=== PATIENT | male | born 1995 | race Caucasian/White ===

== ENCOUNTER 2018-07-09 08:00 | Emergency (ER) | payer SELFPAY ==
[~2018-07-09] VITALS: Ht 167.6 cm; Wt 109.1 kg
[2018-07-09] MEDS ORDERED: SODIUM CHLORIDE 0.9% 1,000 ML IV ONE (08:30)
[2018-07-09] MEDS ORDERED: LORazepam 2 MG/ML VIAL IVP ONE (08:30)
[2018-07-09 08:38] LABS: BASOPHILS % (AUTO) 0.3 % (0.0-2.0); EOSINOPHILS % (AUTO) 0.4 % (1.0-6.0); HEMATOCRIT 49.8 % (41-53); HEMOGLOBIN 17.4 g/dL (13.5-17.5); LYMPHOCYTES # (AUTO) 1.3 K/uL (1.0-4.8); LYMPHOCYTES % (AUTO) 11.2 % (22.0-44.0); MEAN CORPUSCULAR HEMOGLOBIN 31.7 pg (26.0-34.0); MEAN CORPUSCULAR VOLUME 91 fL (80-100); MONOCYTES # (AUTO) 0.6 K/uL (0.1-1.0); MONOCYTES % (AUTO) 4.9 % (2.0-9.0); NEUTROPHILS # (AUTO) 9.5 K/uL (1.8-7.7); NEUTROPHILS % (AUTO) 83.2 % (40.0-70.0); PLATELET COUNT (AUTO) 272 K/uL (150-450); RED CELL DISTRIBUTION WIDTH 13.3 % (11.5-14.5)
[2018-07-09 08:46] LABS: ANION GAP 18 mmol/L (8-16); CARBON DIOXIDE 21 mmol/L (22-29); CHLORIDE 102 mmol/L (98-107); CREATININE 1.36 mg/dL (0.60-1.30); GLOMERULAR FILTR. RATE CALC > 60 mL/min (>60); GLUCOSE,RANDOM 177 mg/dL (70-110); POTASSIUM 3.7 mmol/L (3.5-5.1); SODIUM SERUM 141 mmol/L (136-145); UREA NITROGEN, BLOOD 10 mg/dL (7-18)
[2018-07-09 08:52] LABS: ALANINE AMINOTRANSFERASE 61 U/L (12-78); ALBUMIN 4.6 g/dL (3.4-5.0); ALKALINE PHOSPHATASE 80 U/L (46-116); ASPARTATE AMINOTRANSFERASE 36 U/L (15-37); BILIRUBIN,TOTAL 1.8 mg/dL (0.1-1.0); TOTAL PROTEIN, SERUM 9.1 g/dL (6.4-8.2)
[2018-07-09] MEDS ORDERED: MORPHINE SULFATE 4 MG/ML SYRINGE IVP ONE (09:30)
[2018-07-09 14:43] VITALS: BP 144/81
== END 2018-07-09 14:52 | disposition home or self-care (01) ==
LOC: EMS 08:01
DX: R07.9 Chest pain, unspecified (principal); F14.10 Cocaine abuse, uncomplicated; R11.0 Nausea; R61 Generalized hyperhidrosis
CPT/HCPCS: 36415; 71045; 80053; 84484; 85025; 93005; 93306; 96374; 96375; 99285; J2060; J2270; J7030